=== PATIENT | female | born 1970 | race Hispanic/Latino ===

== ENCOUNTER 2023-10-15 22:58 | Emergency (ER) | payer OTHER ==
[2023-10-15 23:53] LABS: #Basophils 0.04 10x3/uL (0.0-0.2); %Basophils 0.4 % (0.0-1.0); %Eosinophils 0.3 % (0.0-10.0); %Lymphocytes 9.4 % (21.0-51.0); %Monocytes 6.4 % (0.0-10.0); %Neutrophils 83.2 % (42.0-75.0); Hematocrit 40.1 % (36.0-47.0); Hemoglobin 13.5 g/dL (12.0-16.0); Mean Corpuscular HGB CONC 33.7 g/dL (32.0-36.0); Mean Corpuscular Hemoglobin 30.1 pg (27.0-31.0); Mean Corpuscular Volume 89.5 fL (78.0-98.0); Mean Platelet Volume 10.9 fL (7.4-10.4); Platelet Count 225 10x3/uL (130-400); RBC Distribution Width 13.4 % (11.5-14.5); Red Blood Cell (RBC) Count 4.48 mill/uL (4.20-5.40)
[2023-10-16 00:22] LABS: ALT (SGPT) 11 U/L (8-55); AST (SGOT) 17 U/L (5-34); Albumin 4.3 g/dL (3.5-5.0); Alkaline Phosphatase 64 U/L (40-110); Anion Gap 12 mmol/L (10-20); BUN (Urea Nitrogen) 14 mg/dL (9.8-20.1); Bilirubin, Total 0.8 mg/dL (0.2-1.2); Calc. Creatinine Clearance 0 mL/min (70-130); Calcium 9.5 mg/dL (7.8-10.44); Carbon Dioxide 24 mmol/L (22-29); Chloride 105 mmol/L (98-107); Estimated GFR 94; Globulin 3.3 g/dL (2.4-3.5); Glucose 124 mg/dL (70-105); Potassium 3.8 mmol/L (3.5-5.1); Protein, Total 7.6 g/dL (6.0-8.3); Sodium 137 mmol/L (136-145)
[2023-10-16 00:23] LABS: Troponin I Less than 0.010 ng/mL (< 0.028)
== END 2023-10-16 02:56 | disposition home or self-care (01) ==
LOC: ERS 22:58
DX: E86.0 Dehydration (principal)
CPT/HCPCS: 36415; 70450; 71045; 80053; 83605; 84146; 84484; 85025; 93005; 94760